=== PATIENT | female | born 1945 | race Caucasian/White ===

== ENCOUNTER 2018-05-31 21:35 | Inpatient (IN) ==
[2018-05-31] MEDS ORDERED: Sod Chloride 0.9% Inj 1,000 ML IV.SIG ONE (22:04)
--- NOTE | 2018-05-31 22:12 | ED ---
HPI General Chief Complaint: Fall Stated Complaint: Fall Time Seen by Provider: 05/31/18 22:02 Source: patient Mode of arrival: EMS Limitations: no limitations History of Present Illness HPI Narrative: 72-year-old female presents the ED by EMS after falling from "1 or 2 stairs" onto a tile floor. She states that she was walking in the dark and missed a step. She endorses hitting her head but denies loss of consciousness. On presentation she complains of posterior neck pain, mid back pain, right shoulder elbow and wrist pain and right hip pain. Pain is sharp, rated 8/10, worsened by attempted range of motion. No alleviating factors reported. She has not been ambulatory since the accident. She takes a baby aspirin a day. EMS administered 10 mg of morphine prior to arrival. Related Data Home Medications Medication Instructions Recorded Confirmed clonazepam 0.5 mg PO HS 05/31/18 05/31/18 Allergies Allergy/AdvReac Type Severity Reaction Status Date / Time Penicillins Allergy Unknown Rash Verified 05/31/18 22:12 Review of Systems ROS: all other systems reviewed are negative [facility] Medical History Medical History Insomnia (Acute) Neuropathy (Acute) Psoriatic arthritis (Acute) Surgical History Surgical History History of lumbar surgery (Acute) Social History Social History Substance History: No History of Abuse Smoking Status: Former smoker How Often Do You Have a Drink Containing Alcohol: 2 to 4 times a month Recent Travel in [facility] within the Last 8 Weeks: No Recent Out of Country Travel within the Last 8 Weeks: No Exam Narrative Exam Narrative: GENERAL: Well-nourished, well-developed white female in no acute distress. On a backboard, wearing a c-collar. SKIN: Warm and dry. Thorough evaluation reveals no edema, ecchymosis, abrasion , or laceration of the skin. HEAD: Normocephalic. Atraumatic. No raccoon eyes or olea sign. No tenderness to palpation of the skull. No bony step-offs. No malocclusion of the teeth. EYES: No scleral icterus. No injection or drainage. Pupils pinpoint bilaterally. EOMI. ENT: Pearly bueno tympanic membranes bilaterally. Nasal mucosa is moist. No evidence of septal hematoma. Oropharynx without erythema, edema or exudate. NECK: Supple, trachea midline. No JVD or lymphadenopathy. C-collar in place pending radiological studies. CARDIOVASCULAR: Regular rate and rhythm without murmurs, gallops, or rubs. RESPIRATORY: Breath sounds clear and equal bilaterally. No accessory muscle use. GASTROINTESTINAL: Abdomen soft, non-tender, nondistended. + Bowel sounds MUSCULOSKELETAL: No cyanosis, or edema. No pain with pelvic rocking. 2+ DP and radial pulses bilaterally. FOCUSED RIGHT UPPER EXTREMITY EXAM: Tender to palpation of the length of the humerus, crepitus noted. Patient is holding the arm close to the side. She is able to wiggle the fingers and is neurovascularly intact distally. FOCUSED RIGHT LOWER EXTREMITY EXAM: Tender to palpation of the anterolateral hip. No foreshortening or external rotation noted. Attempted ROM elicits pain. Neurovascularly intact distally. NEUROLOGICAL: Awake and alert. Cranial nerves II through XII intact. Motor and sensory grossly within normal limits. 5/5 muscle strength in all muscle groups. Normal speech. BACK: Nontender without obvious deformity. No CVA tenderness. + midline tenderness in the thoracic region. Course Initial Documented Vital Signs Temperature 98.6 F 05/31/18 22:00 Pulse Rate 73 05/31/18 22:00 Respiratory Rate 16 05/31/18 22:00 Blood Pressure 155/68 H 05/31/18 22:00 Pulse Oximetry 96 05/31/18 22:00 Last Documented Vital Signs Temperature 98.6 F 05/31/18 22:00 Pulse Rate 87 06/01/18 01:09 Respiratory Rate 18 06/01/18 01:09 Blood Pressure 126/70 06/01/18 01:09 Pulse Oximetry 98 06/01/18 01:09 Sign Out Sign Out Data: Patient Sign Out occurred on 05/31/18 at 22:59. Patient's care was discussed, and care was transferred from QUAN Givens to Cristina Steele DO. Sign Out Comment: 72-year-old female with fall from 1 or 2 steps. Suspect orthopedic injuries to the right extremities. Radiological studies pending. Patient signed out to Dr. Mcdonald at end of shift. Last updated by Ellen Brooke PA at 05/31/18 22:54 Medical Decision Making RON Attestation RON supervised visit: Yes Attestation: I was present with the advanced practitioner during the management of this patient. I discussed the case with the advanced practitioner and agree with the findings and plan as documented in their note except as noted below. 72yF presenting after fall down stairs. Complains of right shoulder and lower pelvic pain. She takes 81 my aspirin daily, no other anticoagulants/ antiplatelets. Her workup reveals comminuted right humerus fracture and pubis/ pubic ramus fracture with small pelvic hematoma. Case discussed with Dr. Baca of trauma ; patient to stay on med-surg. Her and her family understand and agree with plan. MDM Narrative Medical decision making narrative: 72-year-old female arrives via EMS after falling "down 1 or 2 stairs" in the dark just before arrival. She endorses hitting her head but denies loss of consciousness. She is alert and oriented 4. She complains of posterior neck pain, midline mid back pain, right upper extremity pain and right hip pain. She takes a baby aspirin daily. She arrives backboarded and wearing a c-collar. She was cleared from the backboard. C-collar in place pending radiological studies. Physical exam suspicious for humerus fracture. IV was established. Patient was administered 1 L normal saline, 4 mg Zofran, 4 mg morphine. Radiological studies pending at this time. Patient signed out to Dr. Mcdonald at end of shift. Differential Diagnosis Differential Diagnosis: Humerus fracture versus radius and ulna fracture versus contusion versus fall from standing versus cervical subluxation versus musculoskeletal pain versus other Lab Data Lab results reviewed: Yes I reviewed the patient's lab results. Result diagrams: 06/01/18 00:10 05/31/18 23:25 Lab Results 05/31/18 06/01/18 06/01/18 Range/Units 23:25 00:10 00:10 WBC 11.8 H (4.0-11.0) th/mm3 RBC 3.60 L (4.00-5.30) mil/mm3 Hgb 11.3 L (11.6-15.3) gm/dL Hct 33.9 L (35.0-46.0) % MCV 94.0 (80.0-100.0) fL MCH 31.3 (27.0-34.0) pg MCHC 33.2 (32.0-36.0) % RDW 13.2 (11.6-17.2) % Plt Count 152 (150-450) th/mm3 MPV 7.2 (7.0-11.0) fL Neut % (Auto) 76.2 H (16.0-70.0) % Lymph % (Auto) 16.6 (9.0-44.0) % Elk % (Auto) 5.6 (0.0-8.0) % Eos % (Auto) 1.3 (0.0-4.0) % Baso % (Auto) 0.3 (0.0-2.0) % Neut # (Auto) 9.0 H (1.8-7.7) th/mm3 Lymph # (Auto) 2.0 (1.0-4.8) th/mm3 Elk # (Auto) 0.7 (0.0-0.9) th/mm3 Eos # (Auto) 0.2 (0.0-0.4) th/mm3 Baso # (Auto) 0.0 (0.0-0.2) th/mm3 WBC Differential . Differential Comment Auto diff final PT 12.0 H (9.8-11.6) sec INR 1.2 Ratio Sodium 143 (136-145) meq/L Potassium 4.0 (3.5-5.1) meq/L Chloride 112 H (98-107) meq/L Carbon Dioxide 24.0 (21.0-32.0) meq/L Anion Gap 7 (5-15) meq/L BUN 11 (7-18) mg/dL Creatinine 0.58 (0.50-1.00) mg/dL Estimated GFR Greater than 89 (>89) mL/min Random Glucose 110 H (74-106) mg/dL Calcium 7.8 L (8.5-10.1) mg/dL Total Bilirubin 0.8 (0.2-1.0) mg/dL AST 39 H (15-37) U/L ALT 30 (10-53) U/L Alkaline Phosphatase 92 (45-117) U/L Total Protein 6.2 L (6.4-8.2) g/dL Albumin 3.3 L (3.4-5.0) g/dL Imaging Data Radiologist's impression: Cervical Spine CT 05/31/18 22:03 CONCLUSION: 1. No acute cervical spine abnormality is identified. 2. Degenerative disc disease is present at C4-C5 and extending through C6-C7. Head CT 05/31/18 22:03 CONCLUSION: No acute intracranial abnormality is identified. Hip X-Ray 05/31/18 22:03 CONCLUSION: Mildly displaced fracture distally of the right superior pubic ramus. Hip joint proper intact. Humerus X-Ray 05/31/18 22:03 CONCLUSION: Comminuted fracture of the proximal humerus as described. Thoracic Spine CT 05/31/18 22:03 CONCLUSION: 1. No acute thoracic spine abnormality is identified. 2. Dextroscoliosis with multilevel degenerative change. Wrist X-Ray 05/31/18 22:03 CONCLUSION: No acute right wrist abnormality is identified. Pelvis CT 05/31/18 22:46 CONCLUSION: 1. There is an acute comminuted mildly displaced fracture of the right pubic bone and nondisplaced fracture of the right inferior pubic ramus. 2. There is a small hematoma adjacent to the fracture abutting the right urinary bladder. 3. Postsurgical changes at L5-S1, as above, with 15 mm of anterolisthesis. Discharge Plan Discharge Disposition Patient Disposition: 30 Still Patient Discharge Condition Condition: Stable Discharge Details Diagnosis: Closed right humeral fracture, Fracture of pubic ramus, Hematoma of pelvis Physicians Team ED Provider: Cristina Steele Primary Care Provider: UNKNOWN, Attending Provider: Shalom Baca Discharge Interventions Interventions: ED Discharge Assessment Last Done: 06/01/18 01:56 Status ED Status: Left Department Discharge Information Discharge Date/Time: 06/01/18 01:56
[2018-05-31] MEDS ORDERED: Morphine Inj 4 MG/ML Vial IV.PUSH ONE (22:14)
--- NOTE | 2018-05-31 22:54 | XR ---
EXAM DATE: 05/31/2018 10:49 PM EDT AGE/SEX: 72 years / Female INDICATIONS: Right hip pain. Patient stated she fell down a few stairs today. CLINICAL DATA: This is the patient's initial encounter. Patient reports that signs and symptoms have been present for 1 day and indicates a pain score of 8/10. MEDICAL/SURGICAL HISTORY: None. None. COMPARISON: No prior exams available for comparison. FINDINGS: Right superior pubic ramus is fractured close to the symphysis. Visualized bony pelvis otherwise inta ct. No fracture or subluxation of the right hip joint proper. There is mild to moderate osteoarthritis. CONCLUSION: Mildly displaced fracture distally of the right superior pubic ramus. Hip joint proper intact. Electronically signed by: Bakari Gilbert MD 05/31/2018 10:53 PM EDT
--- NOTE | 2018-05-31 22:58 | XR ---
EXAM DATE: 05/31/2018 10:51 PM EDT AGE/SEX: 72 years / Female INDICATIONS: Right wrist pain. Patient stated she fell down some stairs today. CLINICAL DATA: This is the patient's initial encounter. Patient reports that signs and symptoms have been present for 1 day and indicates a pain score of 5/10. MEDICAL/SURGICAL HISTORY: None. None. COMPARISON: No prior exams available for comparison. FINDINGS: 3 views of the right wrist demonstrate no fracture or dislocation. Mineralization is decreased and th ere is no significant arthropathy. No soft tissue abnormality or radiopaque foreign body is identifie d. CONCLUSION: No acute right wrist abnormality is identified. Electronically signed by: Bakari Green MD 05/31/2018 10:57 PM EDT
--- NOTE | 2018-05-31 22:59 | XR ---
EXAM DATE: 05/31/2018 10:54 PM EDT AGE/SEX: 72 years / Female INDICATIONS: Right arm pain. Patient stated that she fell down some stairs today. CLINICAL DATA: This is the patient's initial encounter. Patient reports that signs and symptoms have been present for 1 day and indicates a pain score of 9/10. MEDICAL/SURGICAL HISTORY: None. None. COMPARISON: No prior exams available for comparison. FINDINGS: Comminuted fractures seen surgical and anatomic necks and the greater tuberosity of the humerus. Ther e is medial displacement and lateral angulation deformity. I don't see subluxation. CONCLUSION: Comminuted fracture of the proximal humerus as described. Electronically signed by: Bakari Gilbert MD 05/31/2018 10:57 PM EDT
--- NOTE | 2018-05-31 23:12 | CT ---
EXAM DATE: 05/31/2018 11:07 PM EDT AGE/SEX: 72 years / Female INDICATIONS: Trauma. Fell downstairs. CLINICAL DATA: This is the patient's initial encounter. Patient reports that signs and symptoms have been present for 1 day and indicates a pain score of 4/10. MEDICAL/SURGICAL HISTORY: None. Fusion, lumbar. RADIATION DOSE: 55.32 CTDI (mGy) COMPARISON: No prior exams available for comparison. TECHNIQUE: CT of the head without contrast. Using automated exposure control and adjustment of the mA and/or kV according to patient size, radiation dose was kept as low as reasonably achievable to ob tain optimal diagnostic quality images. DICOM format image data is available electronically for revi ew and comparison. FINDINGS: Cerebrum: There is mild generalized atrophy and ventricles are normal given the degree of atrophy. No midline shift, mass lesion, hemorrhage or acute infarction. No extraaxial fluid collections are seen. Posterior Fossa: The cerebellum and brainstem demonstrate no acute abnormality. The 4th ventricle is midline. The cerebellopontine angle is within normal limits. Extracranial: The visualized sinuses are clear. Skull: The calvaria is intact. No skull fracture. CONCLUSION: No acute intracranial abnormality is identified. Electronically signed by: Bakari Green MD 05/31/2018 11:11 PM EDT
--- NOTE | 2018-05-31 23:17 | CT ---
EXAM DATE: 05/31/2018 11:10 PM EDT AGE/SEX: 72 years / Female INDICATIONS: Trauma. Fell downstairs. CLINICAL DATA: This is the patient's initial encounter. Patient reports that signs and symptoms have been present for 1 day and indicates a pain score of 4/10. MEDICAL/SURGICAL HISTORY: None. Fusion, lumbar. RADIATION DOSE: 19.42 CTDI (mGy) COMPARISON: No prior exams available for comparison. TECHNIQUE: Contiguous axial images were obtained using helical multirow detector technique. The vol umetric data was post-processed with multiplanar reconstruction in oblique axial, sagittal, and coron al planes. Using automated exposure control and adjustment of the mA and/or kV according to patient s ize, radiation dose was kept as low as reasonably achievable to obtain optimal diagnostic quality pepe ges. DICOM format image data is available electronically for review and comparison. FINDINGS: There is normal sagittal spinal alignment. No fracture or dislocation is identified. The atlantoaxial relationship is within normal limits and there is no prevertebral soft tissue swelling. Decreased di sc height/degenerative disc disease is present at C4-C5 and extending through C6-C7. No large disc he rniation is seen in the upper cervical spine. The visualized surrounding structures demonstrate no acute finding. There is an 8 mm coarse calcifica tion in the right lobe of the thyroid gland. CONCLUSION: 1. No acute cervical spine abnormality is identified. 2. Degenerative disc disease is present at C4-C5 and extending through C6-C7. Electronically signed by: Bakari Green MD 05/31/2018 11:15 PM EDT
--- NOTE | 2018-05-31 23:26 | CT ---
EXAM DATE: 05/31/2018 11:20 PM EDT AGE/SEX: 72 years / Female INDICATIONS: Trauma. Fell downstairs. CLINICAL DATA: This is the patient's initial encounter. Patient reports that signs and symptoms have been present for 1 day and indicates a pain score of 6/10. MEDICAL/SURGICAL HISTORY: None. Fusion, lumbar. RADIATION DOSE: 35.83 CTDI (mGy) COMPARISON: No prior exams available for comparison. TECHNIQUE: Contiguous axial images were acquired using a multirow detector CT scanner without contra st. Multiplanar reconstruction in the sagittal and coronal planes was performed. Using automated exp osure control and adjustment of the mA and/or kV according to patient size, radiation dose was kept a s low as reasonably achievable to obtain optimal diagnostic quality images. DICOM format image data is available electronically for review and comparison. FINDINGS: There is dextroscoliosis with accentuated kyphosis. No fracture or compression deformity is present. There is no anterolisthesis or retrolisthesis. Endplate osteophytes are present anteriorly at nearly all levels and there is decreased disc height at multiple levels. No disc herniation or canal stenosi s is appreciated. The visualized surrounding structures demonstrate no acute finding. CONCLUSION: 1. No acute thoracic spine abnormality is identified. 2. Dextroscoliosis with multilevel degenerative change. Electronically signed by: Bakari Green MD 05/31/2018 11:25 PM EDT
--- NOTE | 2018-05-31 23:32 | CT ---
EXAM DATE: 05/31/2018 11:20 PM EDT AGE/SEX: 72 years / Female INDICATIONS: Trauma. Fell down stairs. CLINICAL DATA: This is the patient's initial encounter. Patient reports that signs and symptoms have been present for 1 day and indicates a pain score of 10/10. MEDICAL/SURGICAL HISTORY: None. Fusion, lumbar. RADIATION DOSE: 15.34 CTDI (mGy) COMPARISON: No prior exams available for comparison. TECHNIQUE: Multiple contiguous axial images were obtained through the pelvis without contrast. Imag es were obtained using multiple row detector helical technique. . Using automated exposure control an d adjustment of the mA and/or kV according to patient size, radiation dose was kept as low as reasona chelo achievable to obtain optimal diagnostic quality images. DICOM format image data is available micheline ctronically for review and comparison. FINDINGS: Bowel/Mesentery: The visualized small and large bowel demonstrate no acute abnormality. There has b een prior bowel surgery near the colorectal junction. Clips are present in the pelvis. Bladder: No wall thickening or mass. There is a small hematoma abutting the right urinary bladder wa ll. Retroperitoneum: No lymphadenopathy or acute vascular abnormality. There is atherosclerotic disease of the pelvic arterial vessels. Reproductive Organs: Uterus is absent. No adnexal abnormality is identified. Inguinal: No lymphadenopathy or hernia. Bony Structures: There is a comminuted mildly displaced fracture of the right pubic bone and a nondi splaced fracture right inferior pubic ramus. No other acute fracture is identified. There is osteoart hritis at the hip joints bilaterally. Posterior fusion hardware is present at L5-S1 and there has bee n prior laminectomy at this level. Approximately 15 mm of anterolisthesis of L5 on S1 is present with severe degenerative disc disease. Other: None. CONCLUSION: 1. There is an acute comminuted mildly displaced fracture of the right pubic bone and nondisplaced f racture of the right inferior pubic ramus. 2. There is a small hematoma adjacent to the fracture abutting the right urinary bladder. 3. Postsurgical changes at L5-S1, as above, with 15 mm of anterolisthesis. Electronically signed by: Bakari Green MD 05/31/2018 11:31 PM EDT
[2018-05-31 23:59] LABS: Alanine Aminotransferase 30 U/L (10-53)
[2018-06-01 00:01] LABS: Alkaline Phosphatase 92 U/L (45-117); Total Protein 6.2 g/dL (6.4-8.2)
[2018-06-01 00:05] LABS: Albumin 3.3 g/dL (3.4-5.0); Anion Gap 7 meq/L (5-15); Aspartate Aminotransferase 39 U/L (15-37); Blood Urea Nitrogen 11 mg/dL (7-18); Calcium 7.8 mg/dL (8.5-10.1); Chloride 112 meq/L (98-107); Glomerular Filtration Rate Greater Than 89 mL/min (>89); Glucose,Random 110 mg/dL (74-106); Sodium 143 meq/L (136-145)
[2018-06-01 00:28] LABS: Baso % (Auto) 0.3 % (0.0-2.0); Eos # (Auto) 0.2 th/mm3 (0.0-0.4); Eos % (Auto) 1.3 % (0.0-4.0); Hematocrit 33.9 % (35.0-46.0); Hemoglobin 11.3 gm/dL (11.6-15.3); Lymph % (Auto) 16.6 % (9.0-44.0); Mean Corpuscular HGB Conc 33.2 % (32.0-36.0); Mean Corpuscular Hemoglobin 31.3 pg (27.0-34.0); Mean Platelet Volume 7.2 fL (7.0-11.0); Mono # (Auto) 0.7 th/mm3 (0.0-0.9); Mono % (Auto) 5.6 % (0.0-8.0); Neut % (Auto) 76.2 % (16.0-70.0); Platelet Count 152 th/mm3 (150-450); Red Cell Distribution Width 13.2 % (11.6-17.2); White Blood Count 11.8 th/mm3 (4.0-11.0)
[2018-06-01 00:37] LABS: INR 1.2 Ratio
[2018-06-01] MEDS ORDERED: Morphine Inj 4 MG/ML Vial IV.PUSH ONE (01:11)
[2018-06-01] MEDS ORDERED: Morphine Inj 4 MG/ML Vial IV.PUSH PRN ×2 (02:53→07:23)
[2018-06-01] MEDS ORDERED: Post-op Orders (for Pharmacy) OTHER ONE (02:53)
[2018-06-01] MEDS ORDERED: Bisacodyl 10 MG Supp RECTAL PRN (02:53)
[2018-06-01] MEDS ORDERED: Naloxone Inj 0.4 MG/ML Vial IV.PUSH PRN (02:53)
[2018-06-01] MEDS ORDERED: Sod Chloride 0.9% Inj 1,000 ML IV.CONT SCH (03:00)
[2018-06-01] MEDS ORDERED: Chlorhexidine Gluconate 2% 1 Pack (2 Cloths) TOPICAL SCH (04:15)
--- NOTE | 2018-06-01 04:38 | MH ---
cc: Shalom Baca MD DATE OF ADMISSION: 06/01/2018 ADMITTING PHYSICIAN: Dr. Baca. ADMITTING DIAGNOSIS: Fall from the stairwell, fracture of the right pubic ramus and comminuted right humerus fracture. HISTORY OF PRESENT ILLNESS: A 72-year-old female presented to the emergency room after falling down a flight of stairs. She was walking in the dark, tripped, and obviously fell. The patient complains of neck pain, back pain, right shoulder pain, right hip pain. She was worked up and I was called in consult. PAST MEDICAL HISTORY: Neuropathy, psoriatic arthritis, and insomnia. PAST SURGICAL HISTORY: Lumbar laminectomy. SOCIAL HISTORY: The patient does not drink, used to smoke. The patient drinks socially and smoked in the past. MEDICATIONS: Not available at this time. PHYSICAL EXAMINATION: GENERAL: Reveals a 72-year-old female. HEENT: Normocephalic. No trauma to the head. Pupils are equal and reactive. Extraocular muscles intact. NECK: Supple. Bilateral carotid pulses. Tender laterally, but this is coming from the shoulder. There is no back tenderness or step-offs. C-collar is repositioned. CHEST: Bilateral breath sounds, decreased over both lung warren consistent with moderate COPD. HEART: Regular rate and rhythm. The patient is normotensive. ABDOMEN: Soft. No rebound, no guarding. No masses. PELVIS: Stable. The patient is very tender over the right hip, right pelvic area, and suprapubic. Bladder is quite distended. EXTREMITIES: The patient has bilateral femoral, popliteal, dorsalis pedis, posterior tibial pulses, bilateral brachial, ulnar, and radial pulses, palpation of the right arm is extremely painful and it is consistent with comminuted closed right humerus fracture. NEUROLOGIC: The patient is fully intact. Soren Coma Scale is 15. Normal range of motion. Motor toric strength bilateral with the exception of the right arm motion due to the fracture. Deep tendon reflexes normal. No pathologic reflexes. IMPRESSION: A 72-year-old female with right comminuted superior inferior ramus pubic fracture and right comminuted humerus closed fracture. The patient will be admitted. Appropriate service was consulted. MD FOUZIA Everett/zac/enoc , 03:04 AM , 03:10 AM
[2018-06-01] MEDS ORDERED: Sodium Chlor 0.9% Inj 500 ML IV.SIG SCH (05:00)
--- NOTE | 2018-06-01 08:43 | ECG ---
Date Performed: 06/01/2018 Time Performed: 07:02:33 PTAGE: 72 years EKG: Sinus rhythm MARKED LEFT AXIS DEVIATION NONSPECIFIC T-WAVE ABNORMALITY ABNORMAL ECG NO PREVIOUS TRACING DOCTOR: Samir Church Interpretating Date/Time 06/01/2018 08:36:57
[2018-06-01] MEDS: Famotidine 20 MG Tablet PO SCH ×2 (08:50→20:17)
[2018-06-01] MEDS: Senna/Docusate Sodium 8.6/50 MG Tablet PO SCH ×2 (08:50→20:17)
--- NOTE | 2018-06-01 09:55 | P.CONOP ---
[facility] Orthoped[facility] Consult [facility] - [facility] Consult date: 06/01/18 Chief complaint: humerus fracture, pubic jo fracture Narrative: 72-year-old female presents the ED by EMS after falling from "1 or 2 stairs" onto a tile floor. She states that she was walking in the dark and missed a step. She endorses hitting her head but denies loss of consciousness. Patient complains of right shoulder and right hip pain. Pain is sharp, rated 8/10, worsened by attempted range of motion. No alleviating factors reported. She has not been ambulatory since the accident. She takes a baby aspirin a day. Review of Systems Denies fevers, chills, blurry vision, throat pain, abdominal or chest pain, nausea, vomiting, cough, change in urination, numbness tingling, weakness, anxiety, rash. Reports right hip/pelvis pain and right shoulder pain. [facility] - History History Provided By: Patient - Medical History Medical History: Medical History (Last Updated 05/31/18 @ 22:07 by Chris Xiao) Insomnia Neuropathy Psoriatic arthritis - Surgical History Surgical History: Surgical History (Last Reviewed 06/01/18 @ 03:10 by Rio Snyder) History of lumbar surgery - Tobacco History Second Hand Smoke Exposure: No Tobacco Use In Past 30 Days: Yes Smoking Status: Former smoker Tobacco Type: Cigarettes - Alcohol History How Often Do You Have a Drink Containing Alcohol: 2 to 4 times a month - Substance Use History Substance History: No History of Abuse - Travel History Recent Travel in the [place] Within the Last 8 Weeks: No Recent Travel Out of the Country Within the Last 8 Weeks: No - Immunization History Tetanus Immunization: Unsure Hx Influenza Vaccine This Season: Yes Medications and Allergies Active Medications: Active Medications Al Hydroxide/Mg Hydroxide (Milk Of Sheila Liflora) 30 ml PO Q12H PRN PRN Reason: Mild Constipation Bisacodyl (Dulcolax Supp) 10 mg RECTAL DAILY PRN PRN Reason: SEVERE CONSITIPATION Chlorhexidine Gluconate (Chlorhexidine 2% Cloth) 3 pack [employer] [facility] Stop: 06/04/18 04:05 Clonazepam (Klonopin) 0.5 mg PO HS [facility] Enoxaparin Sodium (Lovenox Inj) 40 mg SQ Q24H [facility] Famotidine (Pepcid) 20 mg PO BID [facility] Last Admin: 06/01/18 08:50 Dose: Not Given Sodium Chloride (Ns Inj) 1,000 mls @ 100 mls/hr IV.CONT .Q10H [facility] Last Admin: 06/01/18 03:29 Dose: 100 mls/hr Lactated Ringer's (Lr 1000 Ml Inj) 1,000 mls @ 30 mls/hr IV.SIG .Q24H [facility] Stop: 06/04/18 04:05 Sodium Chloride (Ns Inj) 500 mls @ 30 mls/hr IV.SIG .Q10H [facility] Stop: 06/04/18 04:05 Lactulose (Lactulose Liq) 30 ml PO DAILY PRN PRN Reason: SEVERE CONSITIPATION Morphine Sulfate (Morphine Inj) 2 mg IV.PUSH Q3H PRN PRN Reason: BREAKTHROUGH PAIN Naloxone HCl (Narcan Inj) 0.4 mg IV.PUSH UNSCH PRN PRN Reason: SEE LABEL COMMENTS Ondansetron HCl (Zofran Inj) 4 mg IV.PUSH Q6H PRN PRN Reason: NAUSEA OR VOMITING Last Admin: 06/01/18 03:29 Dose: 4 mg Oxycodone/Acetaminophen (Percocet 5/325 Mg) 1 tab PO Q4H PRN PRN Reason: PAIN SCALE 3 TO 5 Oxycodone/Acetaminophen (Percocet 7.5/325 Mg) 1 tab PO Q4H PRN PRN Reason: PAIN SCALE 6 TO 10 Povidone Iodine (Betadine 5% Antisepsis Kit) 1 applicatio EACH [employer] [facility] Stop: 06/04/18 04:05 Senna/Docusate Sodium (Yisel-Colace) 1 tab PO BID [facility] Last Admin: 06/01/18 08:50 Dose: Not Given Sennosides (Senokot) 17.2 mg PO Q12H PRN PRN Reason: Moderate Constipation Allergies Allergy/AdvReac Type Severity Reaction Status Date / Time Penicillins Allergy Unknown Rash Verified 05/31/18 22:12 Home Medications Medication Instructions Recorded Confirmed Type clonazepam 0.5 mg PO HS 05/31/18 05/31/18 History Exam Vital signs: Vital Signs 05/31/18 22:00 06/01/18 00:21 06/01/18 01:09 Temperature 98.6 F Pulse Rate 73 84 87 Respiratory Rate 16 18 18 Blood Pressure 155/68 H 148/71 H 126/70 Pulse Oximetry 96 98 98 06/01/18 06:01 06/01/18 08:00 Temperature 98.2 F 98.1 F Pulse Rate 71 68 Respiratory Rate 17 18 Blood Pressure 129/61 117/60 Pulse Oximetry 96 99 Intake & Output 05/31/18 06/01/18 06/01/18 18:59 06:59 18:59 Intake Total 1360 / 1360 Output Total 950 / 950 Balance 410 / 410 Weight 74.8 kg Intake: IV 1000 / 1000 NS Inj 1,000 ML @ Wide Open IV. 1000 / 1000 SIG BOLUS ONE Rx#:[id number] Oral 360 / 360 Output: Urine Amount (Catheter) 950 / 950 Indwelling Urethral Catheter 950 / 950 Other: Date of Last Bowel Movement 05/30/18 05/30/18 # Bowel Movements 0 Narrative: Awake, alert, no acute distress Normocephalic Pupils equal No JVD Moist mucous membranes Nonlabored respirations Soft nontender abdomen Regular rate Mild tenderness palpation over anterior pubic symphysis and right-sided ramus. Right lower extremity: Negative logroll although patient does have mild discomfort with hip range of motion. No tenderness palpation or visible deformities distally. Patient damages positive dorsiflexion, plantarflexion, EHL and FHL. Sensation intact. Negative Homans. Brisk cap refill. Right upper extremity: Mild to moderate edema and ecchymosis over the shoulder and proximal humerus. Unable to assess range of motion due to shoulder pain. Patient does demonstrate finger movement although she will not fully cooperate with neuro exam as a result of shoulder discomfort. No visible deformities or tenderness palpation at the elbow or wrist. Brisk cap refill. Left upper and lower extremities: No visible deformities or tenderness palpation. Full active range of motion and strength throughout. Sensation intact. Brisk cap refill. No rash Normal affect Results - Labs Result Diagrams: 06/01/18 00:10 05/31/18 23:25 Labs: Laboratory Results - last 24 hr 05/31/18 06/01/18 06/01/18 23:25 00:10 00:10 WBC 11.8 H RBC 3.60 L Hgb 11.3 L Hct 33.9 L MCV 94.0 MCH 31.3 MCHC 33.2 RDW 13.2 Plt Count 152 MPV 7.2 Neut % (Auto) 76.2 H Lymph % (Auto) 16.6 [place] % (Auto) 5.6 Eos % (Auto) 1.3 Baso % (Auto) 0.3 Neut # (Auto) 9.0 H Lymph # (Auto) 2.0 [place] # (Auto) 0.7 Eos # (Auto) 0.2 Baso # (Auto) 0.0 WBC Differential . Differential Comment Auto diff final PT 12.0 H INR 1.2 Sodium 143 Potassium 4.0 Chloride 112 H Carbon Dioxide 24.0 Anion Gap 7 BUN 11 Creatinine 0.58 Estimated GFR Greater than 89 Random Glucose 110 H Calcium 7.8 L Total Bilirubin 0.8 AST 39 H ALT 30 Alkaline Phosphatase 92 Total Protein 6.2 L Albumin 3.3 L - Diagnostic results Imaging: Impressions Cervical Spine CT 05/31/18 22:03 CONCLUSION: 1. No acute cervical spine abnormality is identified. 2. Degenerative disc disease is present at C4-C5 and extending through C6-C7. Head CT 05/31/18 22:03 CONCLUSION: No acute intracranial abnormality is identified. Hip X-Ray 05/31/18 22:03 CONCLUSION: Mildly displaced fracture distally of the right superior pubic ramus. Hip joint proper intact. Humerus X-Ray 05/31/18 22:03 CONCLUSION: Comminuted fracture of the proximal humerus as described. Thoracic Spine CT 05/31/18 22:03 CONCLUSION: 1. No acute thoracic spine abnormality is identified. 2. Dextroscoliosis with multilevel degenerative change. Wrist X-Ray 05/31/18 22:03 CONCLUSION: No acute right wrist abnormality is identified. Pelvis CT 05/31/18 22:46 CONCLUSION: 1. There is an acute comminuted mildly displaced fracture of the right pubic bone and nondisplaced fracture of the right inferior pubic ramus. 2. There is a small hematoma adjacent to the fracture abutting the right urinary bladder. 3. Postsurgical changes at L5-S1, as above, with 15 mm of anterolisthesis. Assessment and Plan - Assessment and Plan 72-year-old female who presents after a mechanical trip and fall with closed right proximal humerus fracture and right pelvic fractures Radiographs reviewed with the patient. She does have a closed right proximal humerus surgical neck fracture which appears minimally displaced. Options of management were discussed with the patient including nonoperative versus operative care. Given the alignment of her fracture I would certainly recommend an attempt at nonoperative management in a sling. Patient was instructed to remain nonweightbearing to the right upper extremity although she can come out of the sling for hygiene. I did encourage the patient to work on elbow, wrist and finger range of motion. I did discuss with the patient that should her fracture displace, she could then require surgical intervention at that time. In regards to the patient's pelvis, she does have right-sided pubic rami and sacral fractures. Again, these appear very well aligned. I discussed with the patient that certainly she could have right hip/pelvis pain as a result of these fractures however, given their alignment I would attempt nonoperative management at this time. She should be toe-touch weightbearing to the right lower extremity. I did explain to the patient that these fractures do take several weeks to a couple of months to fully heal. Likely over the next 1-2 months, her weightbearing status could be progressed as tolerated. Again, should this fracture displace, she could then require surgical intervention at that time. Patient should be mobilized by physical therapy. She can be placed on anticoagulation when it is felt safe by the primary service. Patient can follow -up in approximately 2 weeks in my office.
[2018-06-01] MEDS: clonazePAM 0.5 MG Tablet PO SCH (20:17)
[2018-06-02] MEDS: Enoxaparin Inj 40 MG/0.4 ML Syringe SQ SCH (06:09)
[2018-06-02 06:10] LABS: Baso # (Auto) 0.1 th/mm3 (0.0-0.2); Baso % (Auto) 0.8 % (0.0-2.0); Eos # (Auto) 0.1 th/mm3 (0.0-0.4); Eos % (Auto) 1.6 % (0.0-4.0); Hematocrit 29.9 % (35.0-46.0); Hemoglobin 10.5 gm/dL (11.6-15.3); Lymph # (Auto) 2.2 th/mm3 (1.0-4.8); Lymph % (Auto) 26.8 % (9.0-44.0); Mean Corpuscular HGB Conc 35.1 % (32.0-36.0); Mean Corpuscular Hemoglobin 32.6 pg (27.0-34.0); Mean Corpuscular Volume 92.7 fL (80.0-100.0); Mean Platelet Volume 7.7 fL (7.0-11.0); Mono # (Auto) 0.8 th/mm3 (0.0-0.9); Mono % (Auto) 9.8 % (0.0-8.0); Neut # (Auto) 5.1 th/mm3 (1.8-7.7); Platelet Count 141 th/mm3 (150-450); Red Blood Count 3.22 mil/mm3 (4.00-5.30); Red Cell Distribution Width 13.1 % (11.6-17.2); White Blood Count 8.3 th/mm3 (4.0-11.0)
[2018-06-02 06:11] LABS: Anion Gap 9 meq/L (5-15); Blood Urea Nitrogen 11 mg/dL (7-18); Carbon Dioxide 23.5 meq/L (21.0-32.0); Chloride 109 meq/L (98-107); Glomerular Filtration Rate Greater Than 89 mL/min (>89); Glucose,Random 103 mg/dL (74-106); Potassium 3.6 meq/L (3.5-5.1); Sodium 141 meq/L (136-145)
--- NOTE | 2018-06-02 07:38 | P.PNOP ---
Subjective Interval history: Patient resting comfortably. States she did get a wheelchair yesterday although with significant discomfort. Physical Exam Vital signs: Vital Signs 06/01/18 08:00 06/01/18 12:00 06/01/18 15:50 Temperature 98.1 F 98.1 F Pulse Rate 68 67 Respiratory Rate 18 16 18 Blood Pressure 117/60 116/55 L Pulse Oximetry 99 96 06/01/18 16:00 06/01/18 20:00 06/01/18 22:00 Temperature 98.5 F Pulse Rate 75 65 Respiratory Rate 16 18 18 Blood Pressure 122/64 98/57 L Pulse Oximetry 97 96 06/02/18 00:00 06/02/18 00:52 06/02/18 04:00 Temperature 98.1 F 98.5 F Pulse Rate 64 66 Respiratory Rate 17 17 17 Blood Pressure 95/51 L 103/58 L Pulse Oximetry 93 L 93 L Intake & Output 06/01/18 06/02/18 06/02/18 18:59 06:59 18:59 Intake Total 480 / 480 1000 / 1000 Output Total 400 / 400 300 / 300 Balance 80 / 80 700 / 700 Weight 74.8 kg Intake: IV 1000 / 1000 NS Inj 1,000 ML @ 100 mls/hr IV 1000 / 1000 .CONT .Q10H [facility] Rx#:[id number] Oral 480 / 480 Output: Urine 400 / 400 300 / 300 Other: Date of Last Bowel Movement 05/30/18 05/30/18 Narrative: awake, alert, no acute distress Right upper extremity: Sling in place. Patient was neurovascularly intact distally. Right lower extremity: Pain around the right hip and anterior pelvis. Patient is neurovascularly intact distally. Negative Homans - Urinary Catheter Management Indwelling Urethral Catheter Cath placed during this visit: yes, but has since been removed by the nurse Reason for continuing: Decision to DC catheter Insertion date: 06/01/18 Insertion time: 01:05 Removal date: 06/02/18 Removal time: 06:00 Results - Labs CBC & Chem 7: 06/02/18 04:26 06/02/18 04:26 Laboratory Results - last 24 hr 06/02/18 06/02/18 04:26 04:26 WBC 8.3 RBC 3.22 L Hgb 10.5 L Hct 29.9 L MCV 92.7 MCH 32.6 MCHC 35.1 RDW 13.1 Plt Count 141 L MPV 7.7 Neut % (Auto) 61.0 Lymph % (Auto) 26.8 [place] % (Auto) 9.8 H Eos % (Auto) 1.6 Baso % (Auto) 0.8 Neut # (Auto) 5.1 Lymph # (Auto) 2.2 [place] # (Auto) 0.8 Eos # (Auto) 0.1 Baso # (Auto) 0.1 WBC Differential . Differential Comment Auto diff final Sodium 141 Potassium 3.6 Chloride 109 H Carbon Dioxide 23.5 Anion Gap 9 BUN 11 Creatinine 0.57 Estimated GFR Greater than 89 Random Glucose 103 Calcium 8.0 L Assessment and Plan - Assessment and Plan 72-year-old female who presents after a mechanical trip and fall with closed right proximal humerus fracture and right pelvic fractures 1. Nonweightbearing right upper extremity in sling. 2. Toe-touch weightbearing right lower extremity 3. PT for mobilization 4. No plan for surgical intervention at this time. Patient should follow up in approximately 2 weeks in office. Should she decide to return home, she should follow-up with an orthopedic surgeon within the next 3 weeks. 5. Lovenox for DVT prophylaxis
[2018-06-02] MEDS: Famotidine 20 MG Tablet PO SCH ×2 (10:11→20:20)
[2018-06-02] MEDS: Senna/Docusate Sodium 8.6/50 MG Tablet PO SCH ×2 (10:11→20:20)
--- NOTE | 2018-06-02 11:45 | P.PN ---
Subjective Interval history: Trauma PTD: 2 Patient OOB in a wheelchair. No distress noted. Patient states, "I feel like I am going to throw up, but then I cannot." Patient complains of pain 07/30. Patient states she is out of bed for an hour already today. Patient states she is not eating much. "I do not have much of an appetite." Patient states she cannot put any weight on her left foot due to her neuropathy and psoriatic arthritis. "I am basically useless." Physical Exam Vital signs: Vital Signs 06/01/18 12:00 06/01/18 15:50 06/01/18 16:00 Temperature 98.1 F Pulse Rate 67 75 Respiratory Rate 16 18 16 Blood Pressure 116/55 L 122/64 Pulse Oximetry 96 97 06/01/18 20:00 06/01/18 22:00 06/02/18 00:00 Temperature 98.5 F 98.1 F Pulse Rate 65 64 Respiratory Rate 18 18 17 Blood Pressure 98/57 L 95/51 L Pulse Oximetry 96 93 L 06/02/18 00:52 06/02/18 04:00 06/02/18 08:00 Temperature 98.5 F 98.2 F Pulse Rate 66 62 Respiratory Rate 17 17 18 Blood Pressure 103/58 L 110/59 L Pulse Oximetry 93 L 94 L Intake & Output 06/01/18 06/02/18 06/02/18 18:59 06:59 18:59 Intake Total 480 / 480 1000 / 1000 Output Total 400 / 400 300 / 300 Balance 80 / 80 700 / 700 Weight 74.8 kg Intake: IV 1000 / 1000 NS Inj 1,000 ML @ 100 mls/hr IV 1000 / 1000 .CONT .Q10H [facility] Rx#:[id number] Oral 480 / 480 Output: Urine 400 / 400 300 / 300 Other: Date of Last Bowel Movement 05/30/18 05/30/18 Narrative: GENERAL: This is a 72-year-old female OOB in a wheelchair. No distress noted. SKIN: Warm and dry. HEAD: Atraumatic. Normocephalic. EYES: PERRLA ENT: No nasal bleeding or discharge. Mucous membranes pink and moist. NECK: Trachea midline. No JVD. CARDIOVASCULAR: Regular rate and rhythm. RESPIRATORY: No accessory muscle use. Lungs are clear to auscultation. Breath sounds equal bilaterally. No distress or dyspnea. GASTROINTESTINAL: BS + x 4 quads. Abdomen soft, non-tender, nondistended. MUSCULOSKELETAL: Extremities without cyanosis, or edema. Right arm in sling. + peripheral pulses x 4 extremities. Warm with good capillary refill and sensation. MAEW. NEUROLOGICAL: Awake and alert. Normal speech and pattern. - Urinary Catheter Management Indwelling Urethral Catheter Cath placed during this visit: yes, but has since been removed by the nurse Reason for continuing: Decision to DC catheter Insertion date: 06/01/18 Insertion time: 01:05 Removal date: 06/02/18 Removal time: 06:00 Results - Labs CBC & Chem 7: 06/02/18 04:26 06/02/18 04:26 Laboratory Results - last 24 hr 06/02/18 06/02/18 04:26 04:26 WBC 8.3 RBC 3.22 L Hgb 10.5 L Hct 29.9 L MCV 92.7 MCH 32.6 MCHC 35.1 RDW 13.1 Plt Count 141 L MPV 7.7 Neut % (Auto) 61.0 Lymph % (Auto) 26.8 [place] % (Auto) 9.8 H Eos % (Auto) 1.6 Baso % (Auto) 0.8 Neut # (Auto) 5.1 Lymph # (Auto) 2.2 [place] # (Auto) 0.8 Eos # (Auto) 0.1 Baso # (Auto) 0.1 WBC Differential . Differential Comment Auto diff final Sodium 141 Potassium 3.6 Chloride 109 H Carbon Dioxide 23.5 Anion Gap 9 BUN 11 Creatinine 0.57 Estimated GFR Greater than 89 Random Glucose 103 Calcium 8.0 L Assessment and Plan - Assessment (1) Closed right humeral fracture Code(s): S42.301A - Unspecified fracture of shaft of humerus, right arm, initial encounter for closed fracture Status: Acute Onset Date: ~05/31/18 (2) Fracture of pubic ramus Code(s): S32.599A - Other specified fracture of unspecified pubis, initial encounter for closed fracture Status: Acute Onset Date: ~05/31/18 (3) Hematoma of pelvis Status: Acute Onset Date: ~05/31/18 - Plan [place]: This is a 72-year-old female who fell from stairs onto the tile floor striking her head. No LOC. INJURIES: RIGHT humerus fx (non-op) RIGHT superior pubic rami fx w/ small pelvic hematoma (non-op) Sacral fx (non-op) PMHx: Insomnia, neuropathy, psoriatic arthritis, lumbar surgery Procedures: Consults: Orthopedics. Case management. Diet: Regular diet. Tolerating po diet. Encourage good po intake with each meal. Pulmonary: Encourage good pulmonary toileting. IS at bedside and pt encouraged to use. Rationale for use explained to patient, and verbalized understanding. PAIN Management: Percocet 5-7.5mg q4h. Morphine 2mg q3h for breakthrough pain. Klonopin 0.5mg HS (home med) Activity: OOB. PT and OT ordered. (NWB RUE-sling; TTWB RLE) GI prophylaxis: Pepcid 20 mg BID po Bowel regimen: Yisel-colace. MOM. Lactulose. Senna PRN. Bisacodyl PRN. LBM : 0 DVT prophylaxis: Mechanical VTE with SCDs. Chemical management with Lovenox 40 mg QD SQ. DC Planning: Case management consulted for assistance with final discharge disposition. PT recommends rehab. Emotional support provided to patient and family at bedside and plan of care discussed. Discussed with RN at bedside. Discussed pt condition and plan of care with collaborating trauma surgeon. Patient is hemodynamically stable and being managed on the med/surg floor. The trauma team will round each day, and evaluate plan of care on a daily basis. RIGHT humerus fx (non-op) RIGHT superior pubic rami fx w/ small pelvic hematoma (non-op) Sacral fx (non-op) Orthopedics consulted and assisting in management and care Supportive care Humerus fracture is nonoperative Pelvic fracture is nonoperative Pain management PT and OT ordered NWB RUE-sling TTWB RLE Bowel regimen Lovenox for DVT prophylaxis Request updated med rec so appropriate medications can be resumed - Attending Attestation The exam, history, and the medical decision-making described in the above note were completed with the assistance of the mid-level provider. I reviewed and agree with the findings presented. I attest that I had a [id number] encounter with the patient on the same day, and personally performed and documented my assessment and findings in the medical record. (1) Closed right humeral fracture Qualifiers: Encounter type: initial encounter Humerus Location: shaft Fracture morphology: comminuted Fracture alignment: nondisplaced Qualified Code(s): S42.354A - Nondisplaced comminuted fracture of shaft of humerus, right arm, initial encounter for closed fracture (2) Fracture of pubic ramus Qualifiers: Encounter type: initial encounter Fracture type: closed Laterality: right Qualified Code(s): S32.591A - Other specified fracture of right pubis, initial encounter for closed fracture
[2018-06-02] MEDS: clonazePAM 0.5 MG Tablet PO SCH (20:20)
[2018-06-03] MEDS: Enoxaparin Inj 40 MG/0.4 ML Syringe SQ SCH (01:00)
[2018-06-03] MEDS: Famotidine 20 MG Tablet PO SCH ×2 (08:05→20:08)
[2018-06-03] MEDS: Senna/Docusate Sodium 8.6/50 MG Tablet PO SCH ×2 (08:05→20:09)
--- NOTE | 2018-06-03 10:52 | P.PN ---
Subjective Interval history: Trauma PTD: 3 Patient lying in bed. No distress noted. Patient states, "my pain is about the same, as long as I take my pills." Patient states she has been getting out of bed. Son at bedside states they are looking to have the patient discharged to [facility]. Physical Exam Vital signs: Vital Signs 06/02/18 12:00 06/02/18 16:00 06/02/18 20:00 Temperature 98.2 F 99.1 F 99.8 F H Pulse Rate 68 75 80 Respiratory Rate 18 18 17 Blood Pressure 138/65 132/67 137/66 Pulse Oximetry 95 95 94 L 06/03/18 00:00 06/03/18 04:00 06/03/18 08:00 Temperature 99.1 F 98.4 F 98.2 F Pulse Rate 78 87 75 Respiratory Rate 15 17 16 Blood Pressure 144/70 H 127/67 138/63 Pulse Oximetry 93 L 93 L 92 L Intake & Output 06/02/18 06/03/18 06/03/18 18:59 06:59 18:59 Output Total 300 / 300 450 / 450 Balance -300 / -300 -450 / -450 Weight 74.2 kg Output: Urine 300 / 300 450 / 450 Other: # Voids 2 Date of Last Bowel Movement 05/31/18 05/31/18 05/31/18 Narrative: GENERAL: This is a 72-year-old female lying in bed. No distress noted. SKIN: Warm and dry. HEAD: Atraumatic. Normocephalic. EYES: PERRLA ENT: No nasal bleeding or discharge. Mucous membranes pink and moist. NECK: Trachea midline. No JVD. CARDIOVASCULAR: Regular rate and rhythm. RESPIRATORY: No accessory muscle use. Lungs are clear to auscultation. Breath sounds equal bilaterally. No distress or dyspnea. GASTROINTESTINAL: BS + x 4 quads. Abdomen soft, non-tender, nondistended. MUSCULOSKELETAL: Extremities without cyanosis, or edema. Right arm in sling. + peripheral pulses x 4 extremities. Warm with good capillary refill and sensation. MAEW. NEUROLOGICAL: Awake and alert. Normal speech and pattern. - Urinary Catheter Management Indwelling Urethral Catheter Cath placed during this visit: yes, but has since been removed by the nurse Reason for continuing: Decision to DC catheter Insertion date: 06/01/18 Insertion time: 01:05 Removal date: 06/02/18 Removal time: 06:00 Results - Labs CBC & Chem 7: 06/02/18 04:26 06/02/18 04:26 Assessment and Plan - Assessment (1) Closed right humeral fracture Code(s): S42.301A - Unspecified fracture of shaft of humerus, right arm, initial encounter for closed fracture Status: Acute Onset Date: ~05/31/18 (2) Fracture of pubic ramus Code(s): S32.599A - Other specified fracture of unspecified pubis, initial encounter for closed fracture Status: Acute Onset Date: ~05/31/18 (3) Hematoma of pelvis Status: Acute Onset Date: ~05/31/18 - Plan [place]: This is a 72-year-old female who fell from stairs onto the tile floor striking her head. No LOC. INJURIES: RIGHT humerus fx (non-op) RIGHT superior pubic rami fx w/ small pelvic hematoma (non-op) Sacral fx (non-op) PMHx: Insomnia, neuropathy, psoriatic arthritis, lumbar surgery Procedures: Consults: Orthopedics. Case management. Diet: Regular diet. Tolerating po diet. Encourage good po intake with each meal. Pulmonary: Encourage good pulmonary toileting. IS at bedside and pt encouraged to use. Rationale for use explained to patient, and verbalized understanding. PAIN Management: Percocet 5-7.5mg q4h. Neurontin 300 mg TID. Klonopin 0.5mg HS (home med) Activity: OOB. PT and OT ordered. (NWB DANIELAE-aloing; TTWB RLE) GI prophylaxis: Pepcid 20 mg BID po Bowel regimen: Yisel-colace. MOM. Lactulose. Senna PRN. Bisacodyl PRN. LBM : 0 DVT prophylaxis: Mechanical VTE with SCDs. Chemical management with Lovenox 40 mg QD SQ. DC Planning: Case management consulted for assistance with final discharge disposition. PT recommends rehab. Patient is clear at this time to discharge to rehab from a trauma surgery standpoint as soon as insurance information obtained and rehab authorization obtained. Emotional support provided to patient and family at bedside and plan of care discussed. Discussed with RN at bedside. Discussed pt condition and plan of care with collaborating trauma surgeon. Patient is hemodynamically stable and being managed on the med/surg floor. The trauma team will round each day, and evaluate plan of care on a daily basis. RIGHT humerus fx (non-op) RIGHT superior pubic rami fx w/ small pelvic hematoma (non-op) Sacral fx (non-op) Orthopedics consulted and assisting in management and care Supportive care Humerus fracture is nonoperative Pelvic fracture is nonoperative Pain management Encourage out of bed PT and OT ordered NWB RUE-sling TTWB RLE Bowel regimen Lovenox for DVT prophylaxis Home meds resumed - Attending Attestation The exam, history, and the medical decision-making described in the above note were completed with the assistance of the mid-level provider. I reviewed and agree with the findings presented. I attest that I had a [id number] encounter with the patient on the same day, and personally performed and documented my assessment and findings in the medical record. (1) Closed right humeral fracture Qualifiers: Encounter type: initial encounter Humerus Location: shaft Fracture morphology: comminuted Fracture alignment: nondisplaced Qualified Code(s): S42.354A - Nondisplaced comminuted fracture of shaft of humerus, right arm, initial encounter for closed fracture (2) Fracture of pubic ramus Qualifiers: Encounter type: initial encounter Fracture type: closed Laterality: right Qualified Code(s): S32.591A - Other specified fracture of right pubis, initial encounter for closed fracture
[2018-06-03] MEDS: Gabapentin 300 MG Capsule PO SCH ×2 (16:19→18:09)
[2018-06-03] MEDS: sulfaSALAzine EC 500 MG Tablet PO SCH (20:08)
[2018-06-03] MEDS: clonazePAM 0.5 MG Tablet PO SCH (20:08)
[2018-06-04] MEDS: Enoxaparin Inj 40 MG/0.4 ML Syringe SQ SCH (01:05)
[2018-06-04] MEDS: Senna/Docusate Sodium 8.6/50 MG Tablet PO SCH ×2 (10:25→22:01)
[2018-06-04] MEDS: Famotidine 20 MG Tablet PO SCH ×2 (10:25→22:01)
[2018-06-04] MEDS: sulfaSALAzine EC 500 MG Tablet PO SCH ×2 (10:25→22:01)
[2018-06-04] MEDS: Gabapentin 300 MG Capsule PO SCH ×3 (10:25→18:44)
--- NOTE | 2018-06-04 11:02 | P.PN ---
Subjective Interval history: TRAUMA PTD: 4 Pt sitting up in bed. No distress noted. "I'm alright." Physical therapist at bedside and states that pt requires a maximum assist to get OOB. Pt states that she has been accepted for rehab. Physical Exam Vital signs: Vital Signs 06/03/18 16:00 06/03/18 20:00 06/04/18 00:00 Temperature 99.6 F 99 F 99.1 F Pulse Rate 76 88 94 H Respiratory Rate 16 18 18 Blood Pressure 113/57 L 146/67 H 125/79 Pulse Oximetry 90 L 95 95 06/04/18 04:00 06/04/18 08:00 Temperature 99.1 F 98.4 F Pulse Rate 76 73 Respiratory Rate 18 Blood Pressure 133/65 119/69 Pulse Oximetry 94 L 94 L Intake & Output 06/03/18 06/04/18 06/04/18 18:59 06:59 18:59 Intake Total 480 / 480 220 / 220 Balance 480 / 480 220 / 220 Weight 74.2 kg Intake: Oral 480 / 480 220 / 220 Other: # Voids 2 2 Date of Last Bowel Movement 05/31/18 06/03/18 # Bowel Movements 2 1 Narrative: GENERAL: This is a 72-year-old female lying in bed. No distress noted. SKIN: Warm and dry. HEAD: Atraumatic. Normocephalic. EYES: PERRLA ENT: No nasal bleeding or discharge. Mucous membranes pink and moist. NECK: Trachea midline. No JVD. CARDIOVASCULAR: Regular rate and rhythm. RESPIRATORY: No accessory muscle use. Lungs are clear to auscultation. Breath sounds equal bilaterally. No distress or dyspnea. GASTROINTESTINAL: BS + x 4 quads. Abdomen soft, non-tender, nondistended. MUSCULOSKELETAL: Extremities without cyanosis, or edema. Right arm in sling. + peripheral pulses x 4 extremities. Warm with good capillary refill and sensation. MAEW. NEUROLOGICAL: Awake and alert. Normal speech and pattern. - Urinary Catheter Management Indwelling Urethral Catheter Cath placed during this visit: yes, but has since been removed by the nurse Reason for continuing: Decision to DC catheter Insertion date: 06/01/18 Insertion time: 01:05 Removal date: 06/02/18 Removal time: 06:00 Results - Labs CBC & Chem 7: 06/02/18 04:26 06/02/18 04:26 Assessment and Plan - Assessment (1) Closed right humeral fracture Code(s): S42.301A - Unspecified fracture of shaft of humerus, right arm, initial encounter for closed fracture Status: Acute (2) Fracture of pubic ramus Code(s): S32.599A - Other specified fracture of unspecified pubis, initial encounter for closed fracture Status: Acute (3) Hematoma of pelvis Status: Acute - Plan YOMBA SHOSHONE: This is a 72-year-old female who fell from stairs onto the tile floor striking her head. No LOC. INJURIES: RIGHT humerus fx (non-op) RIGHT superior pubic rami fx w/ small pelvic hematoma (non-op) Sacral fx (non-op) PMHx: Insomnia, neuropathy, psoriatic arthritis, lumbar surgery Procedures: Consults: Orthopedics. Case management. Diet: Regular diet. Tolerating po diet. Encourage good po intake with each meal. Pulmonary: Encourage good pulmonary toileting. IS at bedside and pt encouraged to use. Rationale for use explained to patient, and verbalized understanding. PAIN Management: Percocet 5-7.5mg q4h. Neurontin 300 mg TID. Klonopin 0.5mg HS (home med) Activity: OOB. PT and OT ordered. (NWB MELANIA-vane; TTWB RLDeirdre) GI prophylaxis: Pepcid 20 mg BID po Bowel regimen: Yisel-colace. MOM. Lactulose. Senna PRN. Bisacodyl PRN. LBM : 06/03. DVT prophylaxis: Mechanical VTE with SCDs. Chemical management with Lovenox 40 mg QD SQ. DC Planning: Case management consulted for assistance with final discharge disposition. PT recommends rehab. Patient is clear at this time to discharge to rehab from a trauma surgery standpoint as soon as insurance information obtained and rehab authorization obtained. Emotional support provided to patient and family at bedside and plan of care discussed. Discussed with RN at bedside. Discussed pt condition and plan of care with collaborating trauma surgeon. Patient is hemodynamically stable and being managed on the med/surg floor. The trauma team will round each day, and evaluate plan of care on a daily basis. RIGHT humerus fx (non-op) RIGHT superior pubic rami fx w/ small pelvic hematoma (non-op) Sacral fx (non-op) Orthopedics consulted and assisting in management and care Supportive care Humerus fracture is nonoperative Pelvic fracture is nonoperative Pain management Encourage out of bed PT and OT ordered NWB RUE-sling TTWB RLE Bowel regimen Lovenox for DVT prophylaxis Home meds resumed (1) Closed right humeral fracture Qualifiers: Encounter type: initial encounter Fracture morphology: other fracture Fracture alignment: nondisplaced (2) Fracture of pubic ramus Qualifiers: Encounter type: initial encounter Fracture type: closed Laterality: right Qualified Code(s): S32.591A - Other specified fracture of right pubis, initial encounter for closed fracture
[2018-06-04] MEDS: clonazePAM 0.5 MG Tablet PO SCH (22:01)
[2018-06-05] MEDS: Enoxaparin Inj 40 MG/0.4 ML Syringe SQ SCH (02:04)
[2018-06-05] MEDS: Gabapentin 300 MG Capsule PO SCH ×3 (08:00→17:08)
[2018-06-05] MEDS: Famotidine 20 MG Tablet PO SCH ×2 (08:00→21:40)
[2018-06-05] MEDS: sulfaSALAzine EC 500 MG Tablet PO SCH ×2 (08:00→21:40)
[2018-06-05] MEDS: Senna/Docusate Sodium 8.6/50 MG Tablet PO SCH ×2 (08:01→21:40)
--- NOTE | 2018-06-05 16:45 | P.PN ---
Subjective Interval history: Awaiting insurance authorization for [facility] Complains of right arm pain- Added low dose Fentanyl patch OOB in chair Physical Exam Vital signs: Vital Signs 06/04/18 20:00 06/04/18 21:57 06/05/18 00:00 Temperature 98.7 F 97.8 F Pulse Rate 76 79 Respiratory Rate 18 18 Blood Pressure 109/59 L 120/64 Pulse Oximetry 95 93 L 06/05/18 04:00 06/05/18 06:00 06/05/18 08:00 Temperature 98.3 F 98.2 F Pulse Rate 87 86 Respiratory Rate 18 Blood Pressure 119/66 140/65 Pulse Oximetry 93 L 93 L 06/05/18 11:50 Temperature 98.8 F Pulse Rate 81 Respiratory Rate 17 Blood Pressure 130/61 Pulse Oximetry 93 L Intake & Output 06/04/18 06/05/18 06/05/18 18:59 06:59 18:59 Intake Total 480 / 480 240 / 240 Output Total 0 / 0 Balance 480 / 480 240 / 240 Weight 74.2 kg Intake: Oral 480 / 480 240 / 240 Output: Urine 0 / 0 Other: # Voids 1 Date of Last Bowel Movement 06/04/18 06/04/18 06/05/18 Narrative: GENERAL: 72 year old well-nourished female OOB in chair. SKIN: Warm and dry. HEAD:Normocephalic. ENT: No nasal bleeding or discharge. Mucous membranes pink and moist. NECK: Trachea midline. No JVD. CARDIOVASCULAR: Regular rate and rhythm. RESPIRATORY: Clear to auscultation. Breath sounds equal bilaterally. GASTROINTESTINAL: Abdomen soft, non-tender, nondistended. + BS MUSCULOSKELETAL: Extremities without cyanosis, or edema. RUE in sling. MAEW, + perfused NEUROLOGICAL: Awake and alert. Normal speech. - Urinary Catheter Management Indwelling Urethral Catheter Cath placed during this visit: yes, but has since been removed by the nurse Reason for continuing: Decision to DC catheter Insertion date: 06/01/18 Insertion time: 01:05 Removal date: 06/02/18 Removal time: 06:00 Results - Labs CBC & Chem 7: 06/02/18 04:26 06/02/18 04:26 Assessment and Plan - Assessment (1) Closed right humeral fracture Code(s): S42.301A - Unspecified fracture of shaft of humerus, right arm, initial encounter for closed fracture Status: Acute Onset Date: ~05/31/18 (2) Fracture of pubic ramus Code(s): S32.599A - Other specified fracture of unspecified pubis, initial encounter for closed fracture Status: Acute Onset Date: ~05/31/18 (3) Hematoma of pelvis Status: Acute Onset Date: ~05/31/18 - Plan GULKANA: Fell from a few stairs onto the tile floor striking her head. No LOC. INJURIES: RIGHT humerus fx (non-op) RIGHT superior pubic rami fx w/ small pelvic hematoma (non-op) Sacral fx (non-op) PMHx: Insomnia, neuropathy, psoriatic arthritis, lumbar surgery RIGHT humerus fx, RIGHT superior pubic rami fx w/ small pelvic hematoma, Sacral fx Orthopedics consulted, F/U outpatient Nonoperative management Hgb stable NWB RUE-maintain sling TTWB RLE OOB- PT and OT ordered Pain control- added low dose Fentanyl patch Bowel regimen Lovenox Plan of care discussed with patient, and RN at bedside. Collaborating Trauma MD agrees with plan. Case management consulted to assist with discharge planning. Patient is clear from Trauma surgery to safely discharge to [facility] when insurance gives auth. - Attending Attestation The exam, history, and the medical decision-making described in the above note were completed with the assistance of the mid-level provider. I reviewed and agree with the findings presented. I attest that I had a [id number] encounter with the patient on the same day, and personally performed and documented my assessment and findings in the medical record. (1) Closed right humeral fracture Qualifiers: Encounter type: initial encounter Humerus Location: shaft Fracture morphology: comminuted Fracture alignment: nondisplaced Qualified Code(s): S42.354A - Nondisplaced comminuted fracture of shaft of humerus, right arm, initial encounter for closed fracture (2) Fracture of pubic ramus Qualifiers: Encounter type: initial encounter Fracture type: closed Laterality: right Qualified Code(s): S32.591A - Other specified fracture of right pubis, initial encounter for closed fracture
[2018-06-05] MEDS: clonazePAM 0.5 MG Tablet PO SCH (21:40)
[2018-06-06] MEDS: Enoxaparin Inj 40 MG/0.4 ML Syringe SQ SCH (03:29)
[2018-06-06] MEDS: sulfaSALAzine EC 500 MG Tablet PO SCH ×2 (08:35→21:20)
[2018-06-06] MEDS: Gabapentin 300 MG Capsule PO SCH ×3 (08:36→18:05)
[2018-06-06] MEDS: Senna/Docusate Sodium 8.6/50 MG Tablet PO SCH ×2 (08:36→21:20)
[2018-06-06] MEDS: Famotidine 20 MG Tablet PO SCH ×2 (08:46→21:20)
--- NOTE | 2018-06-06 18:24 | P.PN ---
Subjective Interval history: Active DC to rehab for several days waiting on insurance auth Max assist x2 people OOB Pain better with Fentanyl patch Physical Exam Vital signs: Vital Signs 06/05/18 20:00 06/05/18 23:30 06/06/18 00:00 Temperature 98.8 F 99.0 F Pulse Rate 83 86 Respiratory Rate 17 17 17 Blood Pressure 140/69 111/63 Pulse Oximetry 95 94 L 06/06/18 02:00 06/06/18 04:00 06/06/18 06:20 Temperature 99.3 F Pulse Rate 84 Respiratory Rate 18 16 17 Blood Pressure 115/61 Pulse Oximetry 93 L 06/06/18 07:40 06/06/18 12:00 06/06/18 15:31 Temperature 98.2 F 98.4 F 98.3 F Pulse Rate 85 73 75 Respiratory Rate 17 17 17 Blood Pressure 126/68 133/62 122/67 Pulse Oximetry 95 94 L 95 Intake & Output 06/05/18 06/06/18 06/06/18 18:59 06:59 18:59 Intake Total 1000 / 1000 960 / 960 Balance 1000 / 1000 960 / 960 Weight 74.2 kg Intake: Oral 1000 / 1000 960 / 960 Other: # Voids 3 2 3 Date of Last Bowel Movement 06/05/18 06/04/18 Narrative: GENERAL: 72 year old well-nourished female lying in bed. SKIN: Warm and dry. HEAD:Normocephalic. ENT: No nasal bleeding or discharge. Mucous membranes pink and moist. NECK: Trachea midline. No JVD. CARDIOVASCULAR: Regular rate and rhythm. RESPIRATORY: Clear to auscultation. Breath sounds equal bilaterally. GASTROINTESTINAL: Abdomen soft, non-tender, nondistended. + BS MUSCULOSKELETAL: Extremities without cyanosis, or edema. RUE in sling. MAEW, + perfused NEUROLOGICAL: Awake and alert. Normal speech. - Urinary Catheter Management Indwelling Urethral Catheter Cath placed during this visit: yes, but has since been removed by the nurse Reason for continuing: Decision to DC catheter Insertion date: 06/01/18 Insertion time: 01:05 Removal date: 06/02/18 Removal time: 06:00 Results - Labs CBC & Chem 7: 06/02/18 04:26 06/02/18 04:26 Assessment and Plan - Assessment (1) Closed right humeral fracture Code(s): S42.301A - Unspecified fracture of shaft of humerus, right arm, initial encounter for closed fracture Status: Acute (2) Fracture of pubic ramus Code(s): S32.599A - Other specified fracture of unspecified pubis, initial encounter for closed fracture Status: Acute (3) Hematoma of pelvis Status: Acute - Plan CHEESH-NA: Fell from a few stairs onto the tile floor striking her head. No LOC. INJURIES: RIGHT humerus fx (non-op) RIGHT superior pubic rami fx w/ small pelvic hematoma (non-op) Sacral fx (non-op) PMHx: Insomnia, neuropathy, psoriatic arthritis, lumbar surgery RIGHT humerus fx, RIGHT superior pubic rami fx w/ small pelvic hematoma, Sacral fx Orthopedics consulted, F/U outpatient Nonoperative management Hgb stable NWB RUE-maintain sling TTWB RLE OOB- PT and OT ordered Pain control Bowel regimen Lovenox Plan of care discussed with patient at bedside. Collaborating Trauma MD agrees with plan. Case management consulted to assist with discharge planning. Patient is clear from Trauma surgery to safely discharge to [facility]. (1) Closed right humeral fracture Qualifiers: Encounter type: initial encounter Humerus Location: shaft Fracture morphology: comminuted Fracture alignment: nondisplaced Qualified Code(s): S42.354A - Nondisplaced comminuted fracture of shaft of humerus, right arm, initial encounter for closed fracture (2) Fracture of pubic ramus Qualifiers: Encounter type: initial encounter Fracture type: closed Laterality: right Qualified Code(s): S32.591A - Other specified fracture of right pubis, initial encounter for closed fracture
[2018-06-06] MEDS: clonazePAM 0.5 MG Tablet PO SCH (21:20)
[2018-06-07] MEDS: Enoxaparin Inj 40 MG/0.4 ML Syringe SQ SCH (02:03)
[2018-06-07] MEDS: Senna/Docusate Sodium 8.6/50 MG Tablet PO SCH (08:53)
[2018-06-07] MEDS: sulfaSALAzine EC 500 MG Tablet PO SCH (08:53)
[2018-06-07] MEDS: Famotidine 20 MG Tablet PO SCH (08:53)
[2018-06-07] MEDS: Gabapentin 300 MG Capsule PO SCH (08:53)
--- NOTE | 2018-06-07 15:24 | P.DS ---
<Rusty Pagan M - Last Filed: 06/07/18 15:19> Date of admission: 06/01/18 00:22 Primary care physician: UNKNOWN Brief History from admission: S/P Fall DS: Diagnosis - Discharge Diagnosis (1) Closed right humeral fracture Status: Acute (2) Fracture of pubic ramus Status: Acute (3) Hematoma of pelvis Status: Acute DS: Summary Hospital Course: WRANGELL: Fell from a few stairs onto the tile floor striking her head. No LOC. INJURIES: RIGHT humerus fx (non-op) RIGHT superior pubic rami fx w/ small pelvic hematoma (non-op) Sacral fx (non-op) PMHx: Insomnia, neuropathy, psoriatic arthritis, lumbar surgery RIGHT humerus fx, RIGHT superior pubic rami fx w/ small pelvic hematoma, Sacral fx Orthopedics consulted, F/U outpatient Nonoperative management Hgb stable NWB RUE-maintain sling TTWB RLE OOB- PT and OT ordered Pain control Bowel regimen Lovenox Rehab placement F/U with PCP in 1 week Plan of care discussed with patient and at bedside. Collaborating Trauma MD agrees with plan. Case management consulted to assist with discharge planning. Patient is clear from Trauma surgery to safely discharge to [facility]. - Time Spent with Patient Total time spent providing and/or coordinating discharge services: Greater than 30 minutes - Quality: VTE Deep Vein Thrombosis/Pulmonary Embolism Present on Admission: No Exam Vital signs: Vital Signs 06/06/18 15:31 06/06/18 20:00 06/06/18 21:23 Temperature 98.3 F 98.9 F Pulse Rate 75 79 Respiratory Rate 17 18 18 Blood Pressure 122/67 125/65 Pulse Oximetry 95 95 06/07/18 00:00 06/07/18 04:00 06/07/18 08:00 Temperature 98.9 F 98.9 F 98.1 F Pulse Rate 74 76 74 Respiratory Rate 16 16 17 Blood Pressure 106/55 L 113/65 106/57 L Pulse Oximetry 93 L 93 L 94 L 06/07/18 09:39 Temperature Pulse Rate Respiratory Rate 18 Blood Pressure Pulse Oximetry Intake & Output 06/06/18 06/07/18 06/07/18 18:59 06:59 18:59 Intake Total 960 / 960 Balance 960 / 960 Weight 74.2 kg Intake: Oral 960 / 960 Other: # Voids 3 2 Date of Last Bowel Movement 06/04/18 06/04/18 Narrative: WRANGELL: GENERAL: 72 year old well-nourished female OOB in wheelchair. SKIN: Warm and dry. HEAD:Normocephalic. ENT: No nasal bleeding or discharge. Mucous membranes pink and moist. NECK: Trachea midline. No JVD. CARDIOVASCULAR: Regular rate and rhythm. RESPIRATORY: Clear to auscultation. Breath sounds equal bilaterally. GASTROINTESTINAL: Abdomen soft, non-tender, nondistended. + BS MUSCULOSKELETAL: Extremities without cyanosis, or edema. RUE in sling. MAEW, + perfused NEUROLOGICAL: Awake and alert. Normal speech. Results Procedures completed during hospitalization: NA - Impressions ITS Impressions Cervical Spine CT 05/31/18 22:03 CONCLUSION: 1. No acute cervical spine abnormality is identified. 2. Degenerative disc disease is present at C4-C5 and extending through C6-C7. Head CT 05/31/18 22:03 CONCLUSION: No acute intracranial abnormality is identified. Hip X-Ray 05/31/18 22:03 CONCLUSION: Mildly displaced fracture distally of the right superior pubic ramus. Hip joint proper intact. Humerus X-Ray 05/31/18 22:03 CONCLUSION: Comminuted fracture of the proximal humerus as described. Thoracic Spine CT 05/31/18 22:03 CONCLUSION: 1. No acute thoracic spine abnormality is identified. 2. Dextroscoliosis with multilevel degenerative change. Wrist X-Ray 05/31/18 22:03 CONCLUSION: No acute right wrist abnormality is identified. Pelvis CT 05/31/18 22:46 CONCLUSION: 1. There is an acute comminuted mildly displaced fracture of the right pubic bone and nondisplaced fracture of the right inferior pubic ramus. 2. There is a small hematoma adjacent to the fracture abutting the right urinary bladder. 3. Postsurgical changes at L5-S1, as above, with 15 mm of anterolisthesis. <Temi Hernandez - Last Filed: 06/07/18 15:56> Date of admission: 06/01/18 00:22 Primary care physician: UNKNOWN DS: Summary - Time Spent with Patient Total time spent providing and/or coordinating discharge services: Exam Vital signs: Vital Signs 06/06/18 20:00 06/06/18 21:23 06/07/18 00:00 Temperature 98.9 F 98.9 F Pulse Rate 79 74 Respiratory Rate 18 18 16 Blood Pressure 125/65 106/55 L Pulse Oximetry 95 93 L 06/07/18 04:00 06/07/18 08:00 06/07/18 09:39 Temperature 98.9 F 98.1 F Pulse Rate 76 74 Respiratory Rate 16 17 18 Blood Pressure 113/65 106/57 L Pulse Oximetry 93 L 94 L Intake & Output 06/06/18 06/07/18 06/07/18 18:59 06:59 18:59 Intake Total 960 / 960 Balance 960 / 960 Weight 74.2 kg Intake: Oral 960 / 960 Other: # Voids 3 2 Date of Last Bowel Movement 06/04/18 06/04/18 Results - Impressions ITS Impressions Cervical Spine CT 05/31/18 22:03 CONCLUSION: 1. No acute cervical spine abnormality is identified. 2. Degenerative disc disease is present at C4-C5 and extending through C6-C7. Head CT 05/31/18 22:03 CONCLUSION: No acute intracranial abnormality is identified. Hip X-Ray 05/31/18 22:03 CONCLUSION: Mildly displaced fracture distally of the right superior pubic ramus. Hip joint proper intact. Humerus X-Ray 05/31/18 22:03 CONCLUSION: Comminuted fracture of the proximal humerus as described. Thoracic Spine CT 05/31/18 22:03 CONCLUSION: 1. No acute thoracic spine abnormality is identified. 2. Dextroscoliosis with multilevel degenerative change. Wrist X-Ray 05/31/18 22:03 CONCLUSION: No acute right wrist abnormality is identified. Pelvis CT 05/31/18 22:46 CONCLUSION: 1. There is an acute comminuted mildly displaced fracture of the right pubic bone and nondisplaced fracture of the right inferior pubic ramus. 2. There is a small hematoma adjacent to the fracture abutting the right urinary bladder. 3. Postsurgical changes at L5-S1, as above, with 15 mm of anterolisthesis. Addendum She is overall stable from trauma standpoint will be discharged to rehab Discharge Plan - Discharge Order Discharge Orders: Discharge Order (Routine); Ordered 06/03/18 Ordered By: Alice Kennedy - Physicians Team Primary Care Provider: UNKNOWN, Attending Provider: Shalom Baca Other Providers: Reji Barnhart MD ; Sam Hubbard MD ; Guille Chahal MD ; [facility] [facility] ; Reynold Davis MD ; Alice Kennedy ARNP ; Prashanth Carson MD ; Temi Hernandez MD ; Shalom Baca MD ; Rusty Pagan ARNP
== END 2018-06-07 11:18 ==
LOC: NEPE 21:35 → NEDA 06-01 00:22 → N06 06-01 01:50
PROVIDERS: ADMIT Surgery; ATTEND Surgery